=== PATIENT | female | born 1955 | race American Indian/Alaskan Native ===

== ENCOUNTER 2016-04-20 16:05 | Outpatient (CLI) | payer MEDICAID ==
--- NOTE | 2016-04-20 16:31 | Mammography Report ---
BILATERAL DIGITAL SCREENING MAMMOGRAM WITH CAD: 04/20/16 16:05:00 CLINICAL: Routine screening.Breast cancer survivor status post right partial mastectomy and radiation therapy. COMPARISON:04/01/15 FINDINGS: The breasts are heterogeneously dense, which may obscure small masses. Right postsurgical scar. Minimal skin thickening of the right breast. No mass, suspicious architectural distortion or suspicious calcifications. IMPRESSION: No mammographic evidence of malignancy. BI-RADS CATEGORY: 2 -- Benign RECOMMENDATION: Routine mammographic screening in one year. COMMENT: Patient follow-up letters are generated via our [employer] application.
== END 2016-04-20 16:06 | disposition home or self-care (01) ==
LOC: SPVWC 16:05
PROVIDERS: ATTEND Surgery
DX: Z12.31 Encounter for screening mammogram for malignant neoplasm of breast (principal); Z90.11 Acquired absence of right breast and nipple
CPT/HCPCS: 77067; G0202

== ENCOUNTER 2018-05-30 08:09 | Outpatient (CLI) | payer MEDICAID ==
--- NOTE | 2018-05-30 08:48 | Mammography Report ---
BILATERAL DIGITAL DIAGNOSTIC MAMMOGRAM WITH CAD 05/30/18: 05/30/18 08:09:00 CLINICAL: Breast cancer survivor status post right partial mastectomy and radiation therapy. COMPARISON:05/25/17 and 04/20/16 FINDINGS: The breasts are heterogeneously dense, which may obscure small masses. Stable right benign postsurgical scar at 6 o'clock. No mass, suspicious architectural distortion or suspicious calcifications. IMPRESSION: No mammographic evidence of malignancy. BI-RADS CATEGORY: 2 -- Benign RECOMMENDATION: Routine mammographic screening in one year. COMMENT: Patient follow-up letters are generated via our [employer] application.
== END 2018-05-30 08:10 | disposition home or self-care (01) ==
LOC: SPVWC 08:09
PROVIDERS: ATTEND Surgery
DX: R92.8 Other abnormal and inconclusive findings on diagnostic imaging of breast (principal); K21.9 Gastro-esophageal reflux disease without esophagitis; Z85.3 Personal history of malignant neoplasm of breast
CPT/HCPCS: 77066

== ENCOUNTER 2019-01-18 06:27 | Day surgery (SDC) | payer MEDICAID ==
[~2019-01-18 06:27] MED LIST: ceFAZolin/Water 2 GM/20 ML 2 GM/20 ML SYRINGE IV NR
[2019-01-18] MEDS ORDERED: LIDOCAINE MPF (2%) 20 MG/1 ML VIAL 5 ML ONE (08:06)
[2019-01-18] MEDS ORDERED: dexAMETHasone 20 MG/5 ML VIAL ONE (08:06)
[2019-01-18] MEDS ORDERED: HYDROmorphone 1 MG/1 ML INJ ONE (08:06)
[2019-01-18] MEDS ORDERED: ONDANSETRON 4 MG/2 ML INJ ONE (08:06)
[2019-01-18] MEDS ORDERED: ROCURONIUM 50 MG/5 ML INJ IV ONE (08:06)
[2019-01-18] MEDS ORDERED: KETAMINE/STERILE WATER 50 MG/ML SYRINGE ONE (08:07)
[2019-01-18] MEDS ORDERED: PROPOFOL 200 MG/20 ML VIAL IV ONE (08:07)
[2019-01-18] MEDS ORDERED: ONDANSETRON 4 MG/2 ML INJ IV PRN (08:11)
[2019-01-18] MEDS ORDERED: ACETAMINOPHEN 500 MG TAB PO NR (08:12)
[2019-01-18] MEDS ORDERED: SODIUM CHLORIDE 0.9% 1000 ML 2,000 ML ONE (08:12)
[2019-01-18] MEDS ORDERED: EPINEPHrine/PF (1:1,000) 1 MG/1 ML INJ ONE (08:12)
[2019-01-18] MEDS ORDERED: LIDOCAINE (1%) 10 MG/1 ML VIAL 20 ML MDV ONE (08:13)
[2019-01-18] MEDS ORDERED: LIDOCAINE 1%/EPINEPHRINE 1:100,000 VIAL (20 ML) INFILTRATI ONE ×3 (08:13→11:59)
--- NOTE | 2019-01-18 08:13 | Anesthesia Day of Surgery ---
Anesthesia Day of Surgery - Day of Surgery Patient Examined: Yes Patient H&P Reviewed: Yes Patient is NPO: Yes
--- NOTE | 2019-01-18 08:14 | Anesthesia Consultation ---
Anesthesia Consult and Med Hx Date of service: 01/18/19 - Airway Anesthetic Teeth Evaluation: Chipped ROM Head & Neck: Adequate Mental/Hyoid Distance: Adequate Mallampati Class: Class II Intubation Access Assessment: Good - Pre-Operative Health Status ASA Pre-Surgery Classification: ASA2 Proposed Anesthetic Plan: General - Pulmonary Hx Smoking: No Hx Asthma: No (Pt states can climb two flights of stairs) Hx Sleep Apnea: No - Cardiovascular System Hx Valvular Heart Disease: Yes (MVP- Pt reports stress test/echo in 2010 was normal) - Central Nervous System Hx Psychiatric Problems: Yes (Anxiety) - Gastrointestinal Hx Gastroesophageal Reflux Disease: Yes (Mild) - Endocrine Hx Renal Disease: No Hx Non-Insulin Dependent Diabetes: No Hx Thyroid Disease: No - Hematic Hx Anemia: Yes (IN 1975) - Other Systems Hx Alcohol Use: No Hx Substance Use: No Hx Cancer: Yes
[2019-01-18] MEDS ORDERED: MIDAZOLAM 2 MG/2 ML INJ IV NR (09:00)
[2019-01-18] MEDS ORDERED: CELECOXIB 200 MG CAP PO NR (09:00)
[2019-01-18] MEDS ORDERED: LACTATED RINGERS 1,000 ML IV SCH (09:00)
[2019-01-18] MEDS ORDERED: LIDOCAINE (1%) 10 MG/1 ML VIAL 20 ML MDV INFILTRATI ONE (10:05)
[2019-01-18] MEDS ORDERED: EPINEPHrine/PF (1:1,000) 1 MG/1 ML INJ IV ONE (10:06)
[2019-01-18] MEDS ORDERED: SODIUM CHLORIDE 0.9% IRR 1,000 ML BOTTLE IR ONE (10:07)
[2019-01-18] MEDS ORDERED: SODIUM CHLORIDE 0.9% IRR 1,500 ML BOTTLE IR ONE (10:07)
[2019-01-18] MEDS ORDERED: LACTATED RINGERS 1,000 ML ONE (11:40)
--- NOTE | 2019-01-18 12:40 | Operative Report ---
Operative Report Operative Report: Plastic Surgery Operative Note Preoperative Diagnosis: Breast asymmetry s/p right breast lumpectomy x 2 with resultant deformity; history of malignant neoplasm of the right breast. Post Operative Diagnosis: Same Procedure: Left breast lift (mastopexy) with right breast scar excision and mastopexy with fat grafting for symmetry. Surgeon: Dr. Kiarra Livingston [employer] Farmer: MADIE Doran Specimens: Right breast scar excised EBL: 50cc Indications: This patient is a 63 year old AAF who has a history of right breast cancer. She underwent an initial lumpectomy with a subsequent return to the OR for positive margins. Her right breast has since developed a deformity of the inferior pole with extensive scarring and retraction, resulting in very obvious asymmetry with the left breast. She also lost a lot of breast tissue during the debridements and now has a marked volume asymmetry with her left br east, which demonstrates grade 3 ptosis. The plan to achieve symmetry and reconstruct the right breast is: Right breast scar excision of the inferior pole with mastopexy and left breast mastopexy, followed by fat grafting to the right breast for volume. The benefits as well as the risks of the procedure including hematoma, seroma, wound dehiscence, infection, skin and nipple necrosis as well as the need for further surgery to address any of the above were discussed at length with the patient. We discussed the fact that perfect symmetry is never possible between breasts, and that ultimately the goal of this procedure is to make it look like she had a bilateral vertical mastopexy. She understands and accepts this plan and the associated risks and desires to proceed with surgery. Informed consent was obtained. Procedure: After review of pertinent history and physical exam findings the patient was brought into the operating room and placed supine on the OR table. After induction of adequate general anesthesia the patient's chest was prepped and draped in the usual sterile surgical fashion. First, a No. 11 blade was used to make a supraumbilical and a suprapubic abdominal incisions to allow passage of liposuction cannulas. The subcutaneous fat of the upper abdomen was infiltrated with tumescent solution, total 2 liters, and enough time was allowed for epinephrine effect. Power assisted liposuction was then performed until enough fat was harvested for breast fat grafting. This was allowed to sit and separate from tumescent fluid by gravity while we turned our attention the breasts. To begin, vazquez were refreshed and measurements double checked and we lifted the right breast as follows: A vertical mastopexy skin pattern was outlined and de-epithelialized save the nipple and areola complex, which was measured out using a 4.5cm diameter and left completely attached to the pedicle. After this, tailor tacking was used to make further skin excisions and the medial and lateral breast pillars were plicated at midline. Hemostasis was maintained with electrocautery. Saline solution was then used to irrigate the breast tissue and, satisfied with hemostasis and volume, we began to a 3-layered closure using 2-0 Monocryl and 3-0 Monoderm sutures. The same procedure was performed on the left side. Next, a total of 300cc of pure fat was injected into the right breast. Once all incisions were closed, they were sealed with Dermabond and dressed with Telfa and tegaderm dressings. This was followed by placement of a surgical bra. The patient was then awakened from general anesthesia and transferred to PACU in stable condition. There were no complications. All sponge needle and instrument counts were correct at the end of the case.
[2019-01-18] MEDS: HYDROmorphone 1 MG/1 ML INJ IV PRN ×4 (12:46→13:32)
[2019-01-18 14:01] VITALS: BP 155/85
--- NOTE | 2019-01-18 15:01 | Post Anesthesia Evaluation ---
- Post Anesthesia Evaluation Patient Participated: Yes Airway Patent: Yes Stable Respiratory Function: Yes Nausea/Vomiting: No Temp > 96.8F: Yes Pain Manageable: Yes Adequeate Hydration: Yes Anesthesia Complications: No Block Receding Appropriately: Not Applicable Patient on Ventilator: No
== END 2019-01-18 06:28 | disposition home or self-care (01) ==
LOC: OR 06:27
PROVIDERS: ATTEND Plastic Surgery
DX: N64.89 Other specified disorders of breast (principal); Z90.11 Acquired absence of right breast and nipple; Z85.3 Personal history of malignant neoplasm of breast; G43.909 Migraine, unspecified, not intractable, without status migrainosus; G62.9 Polyneuropathy, unspecified; F41.9 Anxiety disorder, unspecified; J45.909 Unspecified asthma, uncomplicated; K21.9 Gastro-esophageal reflux disease without esophagitis; Z98.891 History of uterine scar from previous surgery; Z86.711 Personal history of pulmonary embolism; Z87.442 Personal history of urinary calculi; Z79.899 Other long term (current) drug therapy; Z80.1 Family history of malignant neoplasm of trachea, bronchus and lung; Z80.42 Family history of malignant neoplasm of prostate; Z86.2 Personal history of diseases of the blood and blood-forming organs and certain disorders involving the immune mechanism
CPT/HCPCS: 19316; 20926; 88302; J0171; J0690; J1100; J1170; J2250; J2405; J2704; J7030; J7120; 88305

== ENCOUNTER 2019-07-03 08:21 | Outpatient (CLI) | payer MEDICAID ==
--- NOTE | 2019-07-03 09:51 | Mammography Report ---
DIGITAL SCREENING MAMMOGRAM WITH CAD, 07/03/2019 INDICATION: Routine screening mammography. TECHNIQUE: Digital bilateral 2D mammography was obtained in the craniocaudal and mediolateral obliq ue projections. This examination was interpreted with the benefit of Computer-Aided Detection analysi s. COMPARISON: 05/25/2017, 05/30/2018 FINDINGS: Breast Density: The breasts are heterogeneously dense, which may obscure small masses. There is no evidence of dominant mass, suspicious calcifications or architectural distortion in eithe r breast. Postoperative scarring is seen in the right breast, unchanged. IMPRESSION: Follow up recommendation: Routine yearly A "normal" or negative report should not discourage follow up or biopsy of a clinically significant f inding. A written summary of these findings will be mailed to the patient. The patient will be entered into a mammography reporting system which will generate a reminder letter for the patient's next appointmen t at the appropriate interval. The [employer] recommends yearly mammograms starting at age 40 and continuing as l ritesh as a woman is in good health. Breast MRI is recommended for women with an approximate 20-25% or greater lifetime risk of breast cancer, including women with a strong family history of breast or ova josé miguel cancer or who have been treated for Hodgkin's disease. Signer Name: Nahid Viera MD Signed: 07/03/2019 9:46 AM Workstation Name: [email or web address]
== END 2019-07-03 08:22 | disposition home or self-care (01) ==
LOC: SPVWC 08:21
PROVIDERS: ATTEND Surgery
DX: Z12.31 Encounter for screening mammogram for malignant neoplasm of breast (principal)
CPT/HCPCS: 77067

== ENCOUNTER 2020-10-29 10:03 | Outpatient (CLI) | payer MEDICAID ==
--- NOTE | 2020-10-30 09:53 | Mammography Report ---
DIGITAL SCREENING MAMMOGRAM WITH CAD, 10/29/2020 CLINICAL INFORMATION / INDICATION: Routine screening mammography. SCREENING MAMMO Z12.31 TECHNIQUE: Digital bilateral 2D mammography was obtained in the craniocaudal and mediolateral obliqu e projections. This examination was interpreted with the benefit of Computer-Aided Detection analysis . COMPARISON: 07/03/2019 FINDINGS: Breast Density: There are scattered areas of fibroglandular density. No dominant mass, suspicious calcifications, or architectural distortion in either breast. Postoperative change again seen in the right breast. IMPRESSION: No mammographic evidence of malignancy. Follow up recommendation: Routine yearly BI-RADS Category 2: Benign. A "normal" or negative report should not discourage follow up or biopsy of a clinically significant f inding. A written summary of these findings will be mailed to the patient. The patient will be entered into a mammography reporting system which will generate a reminder letter for the patient's next appointmen t at the appropriate interval. The [employer] recommends yearly mammograms starting at age 40 and continuing as l ritesh as a woman is in good health. Breast MRI is recommended for women with an approximate 20-25% or greater lifetime risk of breast cancer, including women with a strong family history of breast or ova josé migeul cancer or who have been treated for Hodgkin's disease. Signer Name: Jared Macias MD Signed: 10/30/2020 9:49 AM Workstation Name: [id number]
--- NOTE | 2020-10-30 09:53 | Mammography Report ---
DIGITAL SCREENING MAMMOGRAM WITH CAD, 10/29/2020 CLINICAL INFORMATION / INDICATION: Routine screening mammography. SCREENING MAMMO Z12.31 TECHNIQUE: Digital bilateral 2D mammography was obtained in the craniocaudal and mediolateral obliqu e projections. This examination was interpreted with the benefit of Computer-Aided Detection analysis . COMPARISON: 07/03/2019 FINDINGS: Breast Density: There are scattered areas of fibroglandular density. No dominant mass, suspicious calcifications, or architectural distortion in either breast. Postoperative change again seen in the right breast. IMPRESSION: No mammographic evidence of malignancy. Follow up recommendation: Routine yearly BI-RADS Category 2: Benign. A "normal" or negative report should not discourage follow up or biopsy of a clinically significant f inding. A written summary of these findings will be mailed to the patient. The patient will be entered into a mammography reporting system which will generate a reminder letter for the patient's next appointmen t at the appropriate interval. The [employer] recommends yearly mammograms starting at age 40 and continuing as l ritesh as a woman is in good health. Breast MRI is recommended for women with an approximate 20-25% or greater lifetime risk of breast cancer, including women with a strong family history of breast or ova josé miguel cancer or who have been treated for Hodgkin's disease. Signer Name: Jared Macias MD Signed: 10/30/2020 9:49 AM Workstation Name: [id number]
== END 2020-10-29 10:04 | disposition home or self-care (01) ==
LOC: SPVWC 10:03
PROVIDERS: ATTEND Surgery
DX: Z12.31 Encounter for screening mammogram for malignant neoplasm of breast (principal)
CPT/HCPCS: 77063; 77067

== ENCOUNTER 2021-02-18 08:38 | Outpatient (CLI) | payer MEDICAID ==
--- NOTE | 2021-02-18 10:02 | Mammography Report ---
BILATERAL DIGITAL DIAGNOSTIC MAMMOGRAM WITH CAD CONVENTIONAL, 02/18/2021 LEFT LIMITED BREAST ULTRASOUND CLINICAL INFORMATION / INDICATION: Patient presents for evaluation of an area of palpable concern in the left breast. Patient has a history of right breast cancer status post lumpectomy, and history of bilateral breast reduction. TECHNIQUE: Digital bilateral mammographic imaging was performed. Spot compression views were obtained . Limited ultrasound was performed. This examination was interpreted with the benefit of Computer-Aid ed Detection (CAD) analysis. COMPARISON: Prior mammograms 10/29/2020 and 07/03/2019 FINDINGS: Breast Density: The breasts are heterogeneously dense, which may obscure small masses. MAMMOGRAPHIC FINDINGS: No dominant mass, suspicious calcifications, or architectural distortion in ei ther breast. There is stable benign postlumpectomy change seen in the right breast, and stable benign post reduction change seen in both breasts. Underlying the marker denoting site of palpable concern in the posterior upper outer quadrant of the left breast, there is suggestion of a circumscribed fat density lesion measuring up to approximately 4 cm. This is unchanged compared with prior mammograms a nd most likely reflects a benign lipoma or possibly large oil cyst. Targeted ultrasound was performed for further evaluation. ULTRASOUND FINDINGS: Targeted ultrasound evaluation was performed of the area of interest. A promin ent fat lobule is seen at the site of palpable concern in the left breast 1:00 position located 7 cm from the nipple, difficult to precisely measure as it blends in with adjacent tissue. No suspicious s onographic abnormality identified. IMPRESSION: 1. A benign fat-containing lesion corresponds with the site of palpable concern in the left breast, w ith differential considerations including a prominent fat lobule, lipoma, or oil cyst. No suspicious mammographic or sonographic abnormality is identified. Follow up recommendation: Routine yearly BI-RADS Category 2: Benign. A "normal" or negative report should not discourage follow up or biopsy of a clinically significant f inding. A written summary of these findings will be mailed to the patient. The patient will be entered into a mammography reporting system which will generate a reminder letter for the patient's next appointmen t at the appropriate interval. According to the [employer], yearly mammograms are recommended starting at age 40 and continuing as long as a woman is in good health. Breast MRI is recommended for women with an [place] roximately 20-25% or greater lifetime risk of breast cancer, including women with a strong family his tory of breast or ovarian cancer and women who have been treated for Hodgkin's disease. Signer Name: Jesusita Katz MD Signed: 02/18/2021 9:57 AM Workstation Name: [id number]
== END 2021-02-18 08:39 | disposition home or self-care (01) ==
LOC: SPVWC 08:38
PROVIDERS: ATTEND Advanced Practice Midwife
DX: N60.02 Solitary cyst of left breast (principal); N64.89 Other specified disorders of breast
CPT/HCPCS: 77066